=== PATIENT | male | born 1955 | race African-American/Black ===

== ENCOUNTER 2020-08-19 10:29 | Outpatient (REF) | payer MEDICARE, SELFPAY ==
[2020-08-19 11:30] LABS: MANUAL DIFF FLAG NO
[2020-08-19 11:37] LABS: Basophils Percent Auto 0.9 % (0-2); Eosinophils Absolute Auto 0.1 X10*3/uL (0.0-0.4); Eosinophils Percent Auto 2.2 % (0-4); Hematocrit 41.3 % (42-52); Hemoglobin 13.7 g/dl (14.0-18.0); Imm Gran Abs Auto 0.01 X10*3/uL (0.00-0.03); Imm Gran Pct Auto 0.3 % (0.0-0.4); Lymphocytes Absolute Auto 1.7 X10*3/uL (1.2-4.9); Lymphocytes Percent Auto 52.2 % (20-40); Mean Corpuscular HGB Conc 33.2 g/dl (31.0-36.0); Mean Corpuscular Hemoglobin 31.2 pg (27.0-33.0); Mean Corpuscular Volume 94.1 fL (80-98); Mean Platelet Volume 11.6 fL (9.4-12.4); Monocytes Absolute Auto 0.3 X10*3/uL (0.1-1.2); Monocytes Percent Auto 9.2 % (2-11); Neutrophils Absolute Auto 1.1 X10*3/uL (2.0-8.3); Neutrophils Percent Auto 35.2 % (45-73); Platelet Count 206 X10*3/uL (160-400); Red Blood Count 4.39 X10*6/uL (4.60-5.80); Red Cell Distribution Width 14.4 % (11.0-16.0); White Blood Count 3.2 X10*3/uL (4.8-10.8)
[2020-08-19 12:15] LABS: Alanine Aminotransferase 25 U/L (0-40); Albumin Level 4.4 g/dL (3.5-5.0); Alkaline Phosphatase 47 U/L (39-117); Anion Gap 13 (12-20); Aspartate Amino Transferase 26 U/L (5-37); Bilirubin Total 0.5 mg/dL (0.0-1.0); Blood Urea Nitrogen 19 mg/dL (9-16); Calcium 9.4 mg/dL (8.4-10.2); Carbon Dioxide 29 mmol/L (22-29); Chloride 102 mmol/L (96-108); Cholesterol 179 mg/dL; Estimated Glomerular Filt Rate 58; Glucose Random 100 mg/dL (60-115); HDL Cholesterol 72 mg/dL; LDL Cholesterol Calculated 99 mg/dl; Potassium 4.8 mmol/L (3.3-5.1); Sodium 139 mmol/L (135-145); Total Protein 8.1 g/dL (6.5-8.0); Triglycerides 40 mg/dL
[2020-08-19 12:36] LABS: Free T4 (Free Thyroxine) 0.92 ng/dL (0.71-1.85); Prostate Specific Antigen Scr 0.61 ng/mL (<0.05-4.0); Thyroid Stimulating Hormone 0.64 uIU/mL (0.32-4.0)
[2020-08-21 04:52] LABS: Folate 6.7 ng/mL (> or = 4.0); Vitamin B12 729 pg/mL (200-900)
== END 2020-08-19 10:30 | disposition home or self-care (01) ==
LOC: HO.LAB 10:29
PROVIDERS: PCP Internal Medicine; Visit Provider Internal Medicine
DX: E78.00 Pure hypercholesterolemia, unspecified (principal); I10 Essential (primary) hypertension; Z12.5 Encounter for screening for malignant neoplasm of prostate
CPT/HCPCS: 36415; 80053; 80061; 82607; 82746; 84153; 84439; 84443; 85025

== ENCOUNTER 2021-02-12 10:03 | Outpatient (REF) | payer MEDICARE, SELFPAY ==
[2021-02-12 11:10] LABS: Basophils Percent Auto 0.7 % (0-2); Eosinophils Absolute Auto 0.1 X10*3/uL (0.0-0.4); Eosinophils Percent Auto 1.7 % (0-4); Hematocrit 38.9 % (42-52); Hemoglobin 13.4 g/dl (14.0-18.0); Immature Retic Fraction 8.6 % (2.3-13.4); Lymphocytes Absolute Auto 1.7 X10*3/uL (1.2-4.9); Lymphocytes Percent Auto 56.8 % (20-40); MANUAL DIFF FLAG SCAN; Mean Corpuscular HGB Conc 34.4 g/dl (31.0-36.0); Mean Corpuscular Hemoglobin 31.9 pg (27.0-33.0); Mean Corpuscular Volume 92.6 fL (80-98); Monocytes Absolute Auto 0.3 X10*3/uL (0.1-1.2); Neutrophils Absolute Auto 0.9 X10*3/uL (2.0-8.3); Neutrophils Percent Auto 30.8 % (45-73); Platelet Count 185 X10*3/uL (160-400); Red Cell Distribution Width 14.3 % (11.0-16.0); Retic HGB Equivalent 35.1 pg (30.0-35.0); Reticulocyte Percent 1.2 % (0.5-1.8); Reticulocytes Absolute 0.049 X10*6/uL (0.026-0.095); SCAN SMEAR FLAG 1
[2021-02-12 11:34] LABS: Estimated Average Glucose 123 mg/dL; Hemoglobin A1c % 5.9 %
[2021-02-12 11:36] LABS: Alanine Aminotransferase 19 U/L (0-40); Albumin Level 4.3 g/dL (3.5-5.0); Alkaline Phosphatase 43 U/L (39-117); Anion Gap 12 (12-20); Aspartate Amino Transferase 23 U/L (5-37); Bilirubin Total 0.7 mg/dL (0.0-1.0); Blood Urea Nitrogen 15 mg/dL (9-16); Calcium 9.5 mg/dL (8.4-10.2); Carbon Dioxide 27 mmol/L (22-29); Chloride 102 mmol/L (96-108); Estimated Glomerular Filt Rate 59; Glucose Random 86 mg/dL (60-115); Iron 104 mcg/dL (45-160); Percent Iron Saturation 32 % (15-50); Potassium 3.9 mmol/L (3.3-5.1); Sodium 137 mmol/L (135-145); Total Iron Binding Capacity 323 mcg/dL (228-428); Total Protein 7.6 g/dL (6.5-8.0); Unsaturated Iron Binding 219 ug/dL
[2021-02-12 11:56] LABS: Ferritin 274 ng/mL (20-250)
[2021-02-12 12:16] LABS: SLIDE REVIEW VERIFIED
== END 2021-02-12 10:04 | disposition home or self-care (01) ==
LOC: HO.LAB 10:03
PROVIDERS: Visit Provider Internal Medicine
DX: D64.9 Anemia, unspecified (principal); N28.9 Disorder of kidney and ureter, unspecified; R73.02 Impaired glucose tolerance (oral)
CPT/HCPCS: 36415; 80053; 82728; 83036; 83540; 85025; 85045

== ENCOUNTER 2021-07-16 11:38 | Outpatient (REF) | payer MEDICARE, SELFPAY ==
[2021-07-16 12:58] LABS: Anion Gap 12 (12-20); Blood Urea Nitrogen 15 mg/dL (9-16); Calcium 9.6 mg/dL (8.4-10.2); Carbon Dioxide 28 mmol/L (22-29); Chloride 103 mmol/L (96-108); Estimated Glomerular Filt Rate 56; Glucose Random 93 mg/dL (60-115); Potassium 4.4 mmol/L (3.3-5.1); Sodium 139 mmol/L (135-145)
== END 2021-07-16 11:39 | disposition home or self-care (01) ==
LOC: HO.LAB 11:38
PROVIDERS: PCP Internal Medicine; Visit Provider Internal Medicine
DX: N28.9 Disorder of kidney and ureter, unspecified (principal)
CPT/HCPCS: 36415; 80048

== ENCOUNTER 2022-10-10 07:06 | Outpatient (REF) | payer MEDICARE, SELFPAY ==
[2022-10-10 07:20] LABS: MANUAL DIFF FLAG NO
[2022-10-10 07:55] LABS: Basophils Percent Auto 0.5 % (0-2); Eosinophils Absolute Auto 0.1 X10*3/uL (0.0-0.4); Hematocrit 38.8 % (42.0-52.0); Hemoglobin 13.2 g/dl (14.0-18.0); Imm Gran Abs Auto 0.01 X10*3/uL (0.00-0.03); Imm Gran Pct Auto 0.2 % (0.0-0.4); Lymphocytes Absolute Auto 1.9 X10*3/uL (1.2-4.9); Lymphocytes Percent Auto 47.9 % (20-40); Mean Corpuscular Volume 93.9 fL (80.0-98.0); Mean Platelet Volume 11.8 fL (9.4-12.4); Monocytes Absolute Auto 0.4 X10*3/uL (0.1-1.2); Monocytes Percent Auto 9.7 % (2-11); Neutrophils Absolute Auto 1.6 x10*3/uL (2.0-8.3); Neutrophils Percent Auto 39.7 % (45-73); Platelet Count 164 X10*3/uL (160-400); Red Blood Count 4.13 X10*6/uL (4.60-5.80); Red Cell Distribution Width 13.5 % (11.0-16.0)
[2022-10-10 08:11] LABS: Estimated Average Glucose 123 mg/dL; Hemoglobin A1c % 5.9 %
[2022-10-10 08:34] LABS: Alanine Aminotransferase 16 U/L (0-40); Alkaline Phosphatase 47 U/L (39-117); Anion Gap 12 (12-20); Aspartate Amino Transferase 22 U/L (5-37); Bilirubin Total 0.4 mg/dL (0.0-1.0); Blood Urea Nitrogen 16 mg/dL (9-16); Calcium 9.1 mg/dL (8.4-10.2); Carbon Dioxide 28 mmol/L (22-29); Chloride 103 mmol/L (96-108); Cholesterol 154 mg/dL; Estimated Glomerular Filt Rate > 60; Glucose Random 113 mg/dL (60-115); HDL Cholesterol 74 mg/dL; LDL Cholesterol Calculated 74 mg/dl; Potassium 4.3 mmol/L (3.3-5.1); Sodium 139 mmol/L (135-145); Total Protein 7.5 g/dL (6.5-8.0); Triglycerides 30 mg/dL
[2022-10-10 09:02] LABS: Folate 8.3 ng/mL (> or = 4.0); Free T4 (Free Thyroxine) 0.84 ng/dL (0.71-1.85); Prostate Specific Antigen Scr 0.82 ng/mL (<0.05-4.0); Thyroid Stimulating Hormone 1.23 uIU/mL (0.32-4.0); Vitamin B12 581 pg/mL (200-900)
== END 2022-10-10 07:07 | disposition home or self-care (01) ==
LOC: HO.LAB 07:06
PROVIDERS: PCP Internal Medicine; Visit Provider Internal Medicine
DX: Z12.5 Encounter for screening for malignant neoplasm of prostate (principal); I10 Essential (primary) hypertension; E78.00 Pure hypercholesterolemia, unspecified; R73.02 Impaired glucose tolerance (oral)
CPT/HCPCS: 36415; 80053; 80061; 82607; 82746; 83036; 84153; 84439; 84443; 85025

== ENCOUNTER 2022-12-10 15:01 | Outpatient (AMB) | payer MEDICARE, SELFPAY ==
--- NOTE | 2022-12-10 15:03 | A.OFFPC_ITS ---
Vital Signs 12/10/22 15:04 12/10/22 15:28 Height 5 ft 11 in Weight 191 lb BMI 26.6 BP 144/98 H 132/70 Blood Pressure Location Lt brachial Lt brachial Position Sitting Sitting Pulse 83 Pulse Source Pulse Oximeter Pulse Oximetry (%) 98 Oxygen Delivery Method Room Air Intake Visit Reasons: Annual Exam Allergies amlodipine Allergy (Unknown, Verified 12/10/22 15:04) Unknown lisinopril Allergy (Unknown, Verified 12/10/22 15:04) Unknown Medication List - Last Reconciled 12/10/22 by Joel Dale MD hydrochlorothiazide 12.5 mg PO Q OTHER DAY 90 days metoprolol succinate ER 25 mg PO DAILY 30 days Tobacco use date assessed: 10/09/22 Fall risk assessment: No Falls in past year Last assessed Fall Risk: 12/10/22 Dental Screening Dental Screen Date: 12/10/22 Did you have a dental visit in the last 12 months?: Yes Did you have a dental problem in the last 6 months where you did not have access to dental care?: No Was dental information given to patient?: Patient has dentist HPI Annual Exam HPI Details 67-year-old overweight male with obstructive sleep apnea hypertension impaired glucose tolerance renal insufficiency in [place] anemia chronic disease last seen in September 2022 patient comes in for physical exam. BP at home is good [facility], [facility] Medical History (Updated 12/10/22 @ 15:26 by Joel Dale MD) Erectile dysfunction Hypertension Normochromic normocytic anemia Obstructive sleep apnea Vitamin D deficiency Surgical History History of surgery Family History Father No problems noted. Mother No problems noted. Social History (Updated 12/10/22 @ 15:30 by Joel Dale MD) Household Members: None Housing: House Are you a primary group care worker to a significant other at home: No Do you presently have visiting nurse or other home services: No Alcohol intake: current Alcohol intake frequency: 0-2 drinks per day Patient Tobacco Use Status: Former Tobacco user Tobacco use type: Cigarette Years Smoked: 1998 e-Cigarette/Vaping Use: Never Used Second Hand Smoke Exposure: No service: No Current occupational status: retired Cognitive needs: No Hearing needs: No Vision needs: No Questionnaire PHQ-9 Over the last 2 weeks, how often have you been bothered by any of the following problems? 1. Little interest or pleasure in doing things: not at all 2. Feeling down, depressed, or hopeless: not at all 3. Trouble falling or staying asleep, or sleeping too much: not at all 4. Feeling tired or having little energy: not at all 5. Poor appetite or overeating: not at all 6. Feeling bad about yourself - or that you are a failure or have let yourself or your family down: not at all 7. Trouble concentrating on things, such as reading the newspaper or watching television: not at all 8. Moving or speaking so slowly that other people could have noticed. Or the opposite - being so fidgety or restless that you have been moving around a lot more than usual: not at all 9. Thoughts that you would be better off or of hurting yourself in some way: not at all Total score: 0 Depression Screening Interpretation: Negative Source: Developed by Drs. Arcadio Rice, Sherie Viera, Jonas Hardwick and colleagues, with an educational nisa from [employer]. Thrive Questionnaire Date Thrive assessed: 10/09/22 AUDIT C Alcohol Use Questionnaire (AUDIT-C) 1. How often do you have a drink containing alcohol?: 4 or more times a week 2. How many drinks containing alcohol do you have on a typical day when you are drinking?: 1 or 2 3. How often do you have six or more drinks on one occasion?: Never Total Score: 4 JESSY-7 AMB Questionnaire JESSY-7 Date JESSY - 7 assessed: 10/09/22 Source: Developed by Drs. Arcadio Rice, Jonas Pa and colleagues, with an educational nisa from [employer]. Review of Systems Const Reports as per HPI ENT Reports Normal hearing present Neuro Reports Normal hearing present and Denies confusion Psych Denies confusion Physical exam (Primary Care) Vital Signs: Last Vital Signs Pulse 83 12/10/22 15:04 BP 144/98 H 12/10/22 15:04 Pulse Ox 98 12/10/22 15:04 Oxygen Delivery Method Room Air 12/10/22 15:04 Care Plan Goal for BP management: impacted cerumen R , guaiac negative, prostate N BMI result Body Mass Index 26.6 Tobacco/Smoking Status: Tobacco use Status Tobacco use date assessed 10/09/22 12/10/22 15:08 Patient Tobacco Use Status Former Tobacco user 12/10/22 15:08 Tobacco use type Cigarette 12/10/22 15:08 e-Cigarette/Vaping Use Never Used 12/10/22 15:08 PHQ-9: PHQ-9 Score PHQ-9: Total score 0 12/10/22 15:08 Depression Screening Interpretation: Negative Thrive Assessment: Date of Thrive Assessment Date Thrive assessed 10/09/22 12/10/22 15:08 Const General: alert and awake; No confusion Orientation/consciousness: No confusion HENMT Head: Yes normocephalic Ears: external ears normal Face and sinus: Yes normal facial exam Mouth: moist mucous membranes Throat: Yes tonsils normal Eyes Conjunctivae: conjunctivae normal Pupils: Equal, round and reactive pupils present and Pupil accommodation reflex normal Direct Ophthalmoscopy: normal light reflex Neck Neck: No lymphadenopathy Thyroid: Thyroid normal Chest Chest palpation & inspection: normal inspection of the chest Resp Effort & Inspection: normal respiratory effort and no audible wheezes Auscultation: clear to auscultation bilaterally, no crackles, no wheezes and lung sounds not diminished Cardio Rate: regular rate Rhythm: regular rhythm Peripheral pulses: radial pulses present and dorsalis pedis present GI Palpation (GI): no masses Auscultation: normal bowel sounds and normoactive bowel sounds Male General Exam: Yes normal external exam Skin General skin exam: no rashes or lesions noted Rashes: no rashes Neuro General: deep tendon reflexes 2+ bilaterally and No confusion Cranial nerves: Yes Equal, round and reactive pupils present, Yes Midline tongue present, Yes Normal hearing present and Yes Ability to bilaterally elevate shoulders present Cognition (Neuro): normal cognition Gait exam (Neuro): Normal gait present Motor exam (neuro): 5/5 motor strength present throughout Deep tendon reflexes (DTR's): Right brachioradialis reflex intensity grade: 2+, Left brachioradialis reflex intensity grade: 2+, Right patellar reflex intensity grade: 2+ and Left patellar reflex intensity grade: 2+ Extrem General: No edema Assessment and Plan Assessment & Plan (1) Annual physical exam: Code(s): Z00.00 - Encounter for general adult medical examination without abnormal findings (2) Anemia of chronic disease: Code(s): D63.8 - Anemia in other chronic diseases classified elsewhere Plan: Stable (3) Overweight (BMI 25.0-29.9): Code(s): E66.3 - Overweight Plan: Diet and exercise (4) Renal insufficiency: Code(s): N28.9 - Disorder of kidney and ureter, unspecified Plan: Stable avoid NSAIDs keep well hydrated (5) Impaired glucose tolerance: Code(s): R73.02 - Impaired glucose tolerance (oral) Plan: Decrease the amount of carbohydrate intake, pasta, bread, rice and potatoes are all sugar and that is aside from all the sweet stuff, remember that fruits are good but they are Sweet also. (6) Obstructive sleep apnea: Comment: On CPAP Q night > 4 hours and benefit Code(s): G47.33 - Obstructive sleep apnea (adult) (pediatric) Plan: Continue with CPAP more than 4 hours a night and benefits from this (7) Hypertension: Code(s): I10 - Essential (primary) hypertension Qualifiers: Hypertension type: essential hypertension Qualified Code(s): I10 - Essential (primary) hypertension Plan: Continue with blood pressure medication. Decrease salt intake and exercise continue with hydrochlorothiazide 12.5 mg and metoprolol 25 mg once a day Coding Level of Care Code Est Pt Prev Care >65y(11711) Diagnoses Annual physical exam Z00.00 Anemia of chronic disease D63.8 Overweight (BMI 25.0-29.9) E66.3 Renal insufficiency N28.9 Impaired glucose tolerance R73.02 Obstructive sleep apnea G47.33 Hypertension I10 Hypertension type: essential hypertension
[2022-12-10 15:04] VITALS: BP 144/98; PULSE 83; O2SAT 98; BMI 26.6
[2022-12-10 15:28] VITALS: BP 132/70
== END 2022-12-10 15:49 | disposition home or self-care (01) ==
PROVIDERS: Visit Provider Internal Medicine
DX: I10 Essential (primary) hypertension (principal); D63.8 Anemia in other chronic diseases classified elsewhere; E66.3 Overweight; N28.9 Disorder of kidney and ureter, unspecified; R73.02 Impaired glucose tolerance (oral); G47.33 Obstructive sleep apnea (adult) (pediatric); Z68.26 Body mass index [BMI] 26.0-26.9, adult
CPT/HCPCS: 99214

== ENCOUNTER 2023-11-19 10:01 | Outpatient (AMB) | payer MEDICARE, SELFPAY ==
--- NOTE | 2023-11-19 10:41 | MHC.PC.OV ---
Vital Signs 11/19/23 10:46 Height 5 ft 11 in Weight 183 lb BMI 25.5 BP 138/80 Blood Pressure Location Lt brachial Position Sitting Pulse 70 Pulse Source Pulse Oximeter Pulse Oximetry (%) 98 Oxygen Delivery Method Room Air Intake Visit Reasons: Follow up Allergies amlodipine Allergy (Unknown, Verified 11/19/23 10:46) Unknown lisinopril Allergy (Unknown, Verified 11/19/23 10:46) Unknown Tobacco use date assessed: 11/19/23 Fall risk assessment: No Falls in past year Last assessed Fall Risk: 11/19/23 Dental Screening Dental Screen Date: 11/19/23 Did you have a dental visit in the last 12 months?: Yes Did you have a dental problem in the last 6 months where you did not have access to dental care?: No Was dental information given to patient?: Patient has dentist HPI Follow up HPI Details 68-year-old male with impaired glucose tolerance hypertension obstructive sleep apnea renal insufficiency and anemia of chronic disease coming in for follow-up. Last seen in 12/05/2022. [facility] Medical History (Updated 11/19/23 @ 11:18 by Joel Dale MD) Normochromic normocytic anemia Obstructive sleep apnea Hypertension Vitamin D deficiency Erectile dysfunction Surgical History History of surgery Family History Father No problems noted. Mother No problems noted. Social History (Updated 12/10/22 @ 15:30 by Joel Dale MD) Household Members: None Housing: House Are you a primary respiratory care faculty to a significant other at home: No Do you presently have visiting nurse or other home services: No Alcohol intake: current Alcohol intake frequency: 0-2 drinks per day Patient Tobacco Use Status: Former Tobacco user Tobacco use type: Cigarette Years Smoked: 1998 e-Cigarette/Vaping Use: Never Used Second Hand Smoke Exposure: No service: No Current occupational status: retired Cognitive needs: No Hearing needs: No Vision needs: Yes Questionnaire PHQ-9 Over the last 2 weeks, how often have you been bothered by any of the following problems? 1. Little interest or pleasure in doing things: not at all 2. Feeling down, depressed, or hopeless: not at all 3. Trouble falling or staying asleep, or sleeping too much: not at all 4. Feeling tired or having little energy: not at all 5. Poor appetite or overeating: not at all 6. Feeling bad about yourself - or that you are a failure or have let yourself or your family down: not at all 7. Trouble concentrating on things, such as reading the newspaper or watching television: not at all 8. Moving or speaking so slowly that other people could have noticed. Or the opposite - being so fidgety or restless that you have been moving around a lot more than usual: not at all 9. Thoughts that you would be better off or of hurting yourself in some way: not at all Total score: 0 Depression Screening Interpretation: Negative Depression Screening Done: Yes Source: Developed by Drs. Arcadio Rice, Sherie Viera, Jonas Hardwick and colleagues, with an educational nisa from [employer]. Thrive Questionnaire Date Thrive assessed: 11/19/23 I am a: Patient What is your living situation today?: I have a steady place to live Within the past 12 months, did the food you bought not last and you didn't have the money to get more?: Never true Within the past 12 months, did you worry whether your food would run out before you got money to buy more?: Never true Do you have trouble paying for medicines?: No Do you have trouble getting transportation to medical appointments?: No Do you have trouble paying your heating and electricity bill?: No Do you have trouble taking care of your child, family member or friend?: No Do you have trouble with day-to-day activities such as bathing, preparing meals, shopping, managing finances, etc.?: No Are you currently unemployed and looking for a job?: No Are you interested in more education?: No Currently or been in a relationship where the following occur: No concerns reported THRIVE Score: 0 AUDIT C Alcohol Use Questionnaire (AUDIT-C) 1. How often do you have a drink containing alcohol?: 4 or more times a week 2. How many drinks containing alcohol do you have on a typical day when you are drinking?: 1 or 2 3. How often do you have six or more drinks on one occasion?: Never Total Score: 4 JESSY-7 AMB Questionnaire JESSY-7 Date JESSY - 7 assessed: 11/19/23 Feeling nervous, anxious, or on edge: 0 = Not at all Not being able to stop or control worryin = Not at all Worrying too much about different things: 0 = Not at all Trouble relaxin = Not at all Being so restless that it is hard to sit still: 0 = Not at all Becoming easily annoyed or irritable: 0 = Not at all Feeling afraid as if something awful might happen: 0 = Not at all Total JESSY-7 score (0-4 normal; 5-9 mild; 10-14 moderate; 15-21 severe): 0 Source: Developed by Drs. Arcadio Rice, Sherie Viera, Jonas Hardwick and colleagues, with an educational nisa from [employer]. Physical exam (Primary Care) Vital Signs: Last Vital Signs Pulse 70 11/19/23 10:46 BP 138/80 11/19/23 10:46 Pulse Ox 98 11/19/23 10:46 Oxygen Delivery Method Room Air 11/19/23 10:46 BMI result Body Mass Index 25.5 Tobacco/Smoking Status: Tobacco use Status Tobacco use date assessed 11/19/23 11/19/23 10:50 Patient Tobacco Use Status Former Tobacco user 11/19/23 10:41 Tobacco use type Cigarette 11/19/23 10:41 e-Cigarette/Vaping Use Never Used 11/19/23 10:41 PHQ-9: PHQ-9 Score PHQ-9: Total score 0 11/19/23 10:51 Depression Screening Interpretation: Negative Thrive Assessment: Date of Thrive Assessment Date Thrive assessed 11/19/23 11/19/23 10:50 Currently or been in a relationship where the following occur: No concerns reported Const General: alert; No acute distress Eyes Conjunctivae: conjunctivae normal Resp Auscultation: clear to auscultation bilaterally Cardio Rate: regular rate Rhythm: regular rhythm GI Inspection: Yes normal to inspection Extrem General: Yes normal to inspection and No edema Assessment and Plan Assessment & Plan (1) Impaired glucose tolerance: Code(s): R73.02 - Impaired glucose tolerance (oral) Plan: Decrease the amount of carbohydrate intake, pasta, bread, rice and potatoes are all sugar and that is aside from all the sweet stuff, remember that fruits are good but they are Sweet also. (2) Obstructive sleep apnea: Comment: On CPAP Q night > 4 hours and benefit Code(s): G47.33 - Obstructive sleep apnea (adult) (pediatric) Plan: Continue to use the CPAP more than 4 hours a night and benefits from this. (3) Hypertension: Code(s): I10 - Essential (primary) hypertension Qualifiers: Hypertension type: essential hypertension Qualified Code(s): I10 - Essential (primary) hypertension Plan: Continue with blood pressure medication. Decrease salt intake and exercise on metoprolol and hydrochlorothiazide advised to get blood work (4) Renal insufficiency: Code(s): N28.9 - Disorder of kidney and ureter, unspecified Plan: Keep well hydrated and avoid NSAIDs (5) Colon cancer screening: Code(s): Z12.11 - Encounter for screening for malignant neoplasm of colon Orders: Orders Thyroid Stimulating Hormone Today I10 - Essential (primary) hypertension Reticulocyte Count Today I10 - Essential (primary) hypertension IRON PROFILE Today I10 - Essential (primary) hypertension Complete Blood Count Auto Diff Today I10 - Essential (primary) hypertension Comprehensive Met. Panel Today I10 - Essential (primary) hypertension Prostate Specific Antigen Scr Today I10 - Essential (primary) hypertension Free T4 (Free Thyroxine) Today I10 - Essential (primary) hypertension Vitamin B12 and Folate Today I10 - Essential (primary) hypertension Lipid Panel Today E78.00 - Pure hypercholesterolemia, unspecified, I10 - Essential (primary) hypertension Ferritin Today I10 - Essential (primary) hypertension Referrals Gastroenterology Referral Z12.11 - Encounter for screening for malignant neoplasm of colon Coding Level of Care Code Est Pt Level 4 (12406) Diagnoses Impaired glucose tolerance R73.02 Obstructive sleep apnea G47.33 Essential hypertension I10 Hypertension type: essential hypertension Renal insufficiency N28.9 Colon cancer screening Z12.11
[2023-11-19 10:46] VITALS: BP 138/80; PULSE 70; O2SAT 98; BMI 25.5
== END 2023-11-19 11:37 | disposition home or self-care (01) ==
PROVIDERS: PCP Internal Medicine; Visit Provider Internal Medicine
DX: R73.02 Impaired glucose tolerance (oral) (principal); G47.33 Obstructive sleep apnea (adult) (pediatric); I10 Essential (primary) hypertension; N28.9 Disorder of kidney and ureter, unspecified; Z12.11 Encounter for screening for malignant neoplasm of colon
CPT/HCPCS: 99214

== ENCOUNTER 2023-11-21 11:04 | Outpatient (REF) | payer MEDICARE, SELFPAY ==
[2023-11-21 11:53] LABS: Basophils Percent Auto 0.7 % (0-2); Eosinophils Percent Auto 1.4 % (0-4); Hematocrit 38.8 % (42.0-52.0); Hemoglobin 13.1 g/dl (14.0-18.0); Immature Retic Fraction 7.3 % (2.3-13.4); Lymphocytes Absolute Auto 1.6 X10*3/uL (1.2-4.9); Lymphocytes Percent Auto 56.3 % (20-40); MANUAL DIFF FLAG SCAN; Mean Corpuscular HGB Conc 33.8 g/dl (31.0-36.0); Mean Corpuscular Hemoglobin 31.9 pg (27.0-33.0); Mean Corpuscular Volume 94.4 fL (80.0-98.0); Mean Platelet Volume 11.6 fL (9.4-12.4); Monocytes Absolute Auto 0.3 X10*3/uL (0.1-1.2); Monocytes Percent Auto 10.8 % (2-11); Neutrophils Absolute Auto 0.9 x10*3/uL (2.0-8.3); Neutrophils Percent Auto 30.8 % (45-73); Platelet Count 174 X10*3/uL (160-400); Red Blood Count 4.11 X10*6/uL (4.60-5.80); Red Cell Distribution Width 15.1 % (11.0-16.0); Retic HGB Equivalent 35.7 pg (30.0-35.0); Reticulocyte Percent 1.1 % (0.5-1.8); Reticulocytes Absolute 0.046 X10*6/uL (0.026-0.095); SCAN SMEAR FLAG 1; White Blood Count 2.8 X10*3/uL (4.8-10.8)
[2023-11-21 12:18] LABS: SLIDE REVIEW VERIFIED
[2023-11-21 12:22] LABS: Alanine Aminotransferase 13 U/L (0-40); Albumin Level 4.4 g/dL (3.5-5.0); Alkaline Phosphatase 50 U/L (39-117); Anion Gap 12 (12-20); Aspartate Amino Transferase 22 U/L (5-37); Bilirubin Total 0.5 mg/dL (0.0-1.0); Blood Urea Nitrogen 14 mg/dL (9-16); Calcium 9.7 mg/dL (8.4-10.2); Carbon Dioxide 28 mmol/L (22-29); Chloride 104 mmol/L (96-108); Cholesterol 172 mg/dL (<200); Estimated Glomerular Filt Rate > 60; Glucose Random 85 mg/dL (60-115); HDL Cholesterol 87 mg/dL (>40); Iron 92 mcg/dL (45-160); LDL Cholesterol Calculated 79 mg/dL (<100); Percent Iron Saturation 32 % (15-50); Potassium 4.1 mmol/L (3.3-5.1); Sodium 140 mmol/L (135-145); Total Iron Binding Capacity 291 mcg/dL (228-428); Triglycerides 31 mg/dL (<150); Unsaturated Iron Binding 199 ug/dL
[2023-11-21 12:41] LABS: Ferritin 170 ng/mL (20-250); Free T4 (Free Thyroxine) 0.86 ng/dL (0.71-1.85)
[2023-11-21 12:42] LABS: Prostate Specific Antigen Scr 0.91 ng/mL (<0.05-4.0); Vitamin B12 634 pg/mL (200-900)
== END 2023-11-21 11:05 | disposition home or self-care (01) ==
LOC: HO.LAB 11:04
PROVIDERS: PCP Internal Medicine; Visit Provider Internal Medicine
DX: I10 Essential (primary) hypertension (principal); E78.00 Pure hypercholesterolemia, unspecified; Z12.5 Encounter for screening for malignant neoplasm of prostate
CPT/HCPCS: 36415; 80053; 80061; 82607; 82728; 82746; 83540; 84153; 84439; 84443; 85025; 85045

== ENCOUNTER 2024-09-30 13:31 | Outpatient (REF) | payer MEDICARE, SELFPAY ==
--- NOTE | ~2024-09-30 | XR_ITS ---
EXAMINATION: XR KNEE 1-2 VIEWS RIGHT HISTORY: M25.561 - Pain in right knee COMPARISON: There are no prior studies available for comparison. FINDINGS: AP and lateral views of the right knee are submitted. Osseous mineralization is normal. There is no fracture or dislocation. The joint spaces are preserved. The soft tissues are unremarkable. There is no significant joint effusion. XR/XR knee RT 2V IMPRESSION: Unremarkable examination of the right kidney. Electronically signed by: Arcadio Hair MD 09/30/2024 02:31 PM EDT
== END 2024-09-30 13:32 | disposition home or self-care (01) ==
LOC: HO.XRAY 13:31
PROVIDERS: PCP Internal Medicine
DX: M25.561 Pain in right knee (principal); I10 Essential (primary) hypertension; G47.33 Obstructive sleep apnea (adult) (pediatric); N28.9 Disorder of kidney and ureter, unspecified
CPT/HCPCS: 73560; 96127; 99212

== ENCOUNTER 2024-09-30 13:31 | Outpatient (AMB) | payer MEDICARE, SELFPAY ==
--- NOTE | 2024-09-30 13:37 | MHC.PC.OV ---
Vital Signs 09/30/24 13:39 Height 5 ft 11 in Weight 184 lb 2 oz BMI 25.7 BP 140/80 H Blood Pressure Location Lt brachial Position Sitting Pulse 81 Pulse Source Pulse Oximeter Temp 97.3 F Temp Source Temporal Artery Scan Pulse Oximetry (%) 97 Oxygen Delivery Method Room Air Intake Visit Reasons: rt knee pain Intake Note: Patient is here to follow up on Right knee pain. Corporate Security Officer Required: No Bung Driver: Not Required per policy Accompanied by: Self / Same As Patient Allergies amlodipine Allergy (Unknown, Verified 09/30/24 13:43) Unknown lisinopril Allergy (Unknown, Verified 09/30/24 13:43) Unknown Medication List - Last Reconciled 09/30/24 by Earline Watt PA-C hydrochlorothiazide 12.5 mg PO Q OTHER DAY 90 days metoprolol succinate ER 25 mg PO DAILY 30 days Tobacco use date assessed: 09/30/24 Fall risk assessment: No Falls in past year Last assessed Fall Risk: 09/30/24 Dental Screening Dental Screen Date: 09/30/24 Did you have a dental visit in the last 12 months?: Yes Did you have a dental problem in the last 6 months where you did not have access to dental care?: No Was dental information given to patient?: Patient has dentist HPI rt knee pain HPI Details 68-year-old male with past medical history of impaired glucose tolerance, hypertension, obstructive sleep apnea, renal insufficiency and anemia of chronic disease last seen 11/2023 coming in for acute problem. Presenting with knee pain, aching sensation that manifests primarily during movement. He reports no history of trauma, falls, or lifting that might have initiated or exacerbated the knee pain. The patient has experienced persistent aching without any sharp or shifting pain. Attempts at pain mitigation, including usage of Tylenol, have been ineffective. There are no discernible patterns in relief or exacerbation, with activities such as walking being particularly aggravating. Therapeutic options include initiating Naproxen for symptomatic relief, alongside consideration of a knee brace to enhance comfort during ambulation. Pain has been ongoing for several months without lower extremity swelling, warmth or redness. [facility] Medical History Normochromic normocytic anemia Obstructive sleep apnea Hypertension Vitamin D deficiency Erectile dysfunction Surgical History History of surgery Family History Father No problems noted. Mother No problems noted. Social History Household Members: None Housing: House Are you a primary career technology teacher to a significant other at home: No Do you presently have visiting nurse or other home services: No Alcohol intake: current Alcohol intake frequency: 0-2 drinks per day Patient Tobacco Use Status: Former Tobacco user Tobacco use type: Cigarette Years Smoked: 1998 e-Cigarette/Vaping Use: Never Used Second Hand Smoke Exposure: Yes service: No Current occupational status: retired Cognitive needs: No Hearing needs: No Vision needs: Yes Questionnaire PHQ-9 Over the last 2 weeks, how often have you been bothered by any of the following problems? 1. Little interest or pleasure in doing things: not at all 2. Feeling down, depressed, or hopeless: not at all 3. Trouble falling or staying asleep, or sleeping too much: not at all 4. Feeling tired or having little energy: not at all 5. Poor appetite or overeating: not at all 6. Feeling bad about yourself - or that you are a failure or have let yourself or your family down: not at all 7. Trouble concentrating on things, such as reading the newspaper or watching television: not at all 8. Moving or speaking so slowly that other people could have noticed. Or the opposite - being so fidgety or restless that you have been moving around a lot more than usual: not at all 9. Thoughts that you would be better off or of hurting yourself in some way: not at all Total score: 0 Depression Screening Interpretation: Negative Depression Screening Done: Yes Source: Developed by Drs. Arcadio Rice, Sherie Viera, Jonas Hardwick and colleagues, with an educational nisa from [employer]. Thrive Questionnaire Date Thrive assessed: 09/30/24 I am a: Patient What is your living situation today?: I have a steady place to live Within the past 12 months, did the food you bought not last and you didn't have the money to get more?: Never true Within the past 12 months, did you worry whether your food would run out before you got money to buy more?: Never true Do you have trouble paying for medicines?: No Do you have trouble getting transportation to medical appointments?: No Do you have trouble paying your heating and electricity bill?: No Do you have trouble taking care of your child, family member or friend?: No Do you have trouble with day-to-day activities such as bathing, preparing meals, shopping, managing finances, etc.?: No Are you currently unemployed and looking for a job?: No Are you interested in more education?: No THRIVE Score: 0 AUDIT C Alcohol Use Questionnaire (AUDIT-C) 1. How often do you have a drink containing alcohol?: 4 or more times a week 2. How many drinks containing alcohol do you have on a typical day when you are drinking?: 1 or 2 Total Score: 4 JESSY-7 AMB Questionnaire JESSY-7 Date JESSY - 7 assessed: 09/30/24 Feeling nervous, anxious, or on edge: 0 = Not at all Not being able to stop or control worryin = Not at all Worrying too much about different things: 0 = Not at all Trouble relaxin = Not at all Being so restless that it is hard to sit still: 0 = Not at all Becoming easily annoyed or irritable: 0 = Not at all Feeling afraid as if something awful might happen: 0 = Not at all Total JESSY-7 score (0-4 normal; 5-9 mild; 10-14 moderate; 15-21 severe): 0 Source: Developed by Drs. Arcadio Rice, Sherie Viera, Jonas Hardwick and colleagues, with an educational nisa from [employer]. Review of Systems Const Denies body aches and Denies chills Eyes Reports no additional complaints Card Denies chest pain and Denies dyspnea Resp Denies dyspnea Musc Reports as per HPI and Reports abnormal gait Skin/Breast Reports system reviewed and no additional complaints, except as documented Neuro Reports abnormal gait Psych Reports no additional complaints Physical exam (Primary Care) Vital Signs: Last Vital Signs Temp 97.3 F 09/30/24 13:39 Pulse 81 09/30/24 13:39 BP 140/80 H 09/30/24 13:39 Pulse Ox 97 09/30/24 13:39 Oxygen Delivery Method Room Air 09/30/24 13:39 BMI result Body Mass Index 25.7 Tobacco/Smoking Status: Tobacco use Status Tobacco use date assessed 09/30/24 09/30/24 13:42 Patient Tobacco Use Status Former Tobacco user 09/30/24 13:42 Tobacco use type Cigarette 09/30/24 13:42 e-Cigarette/Vaping Use Never Used 09/30/24 13:42 PHQ-9: PHQ-9 Score PHQ-9: Total score 0 09/30/24 13:42 Depression Screening Interpretation: Negative Thrive Assessment: Date of Thrive Assessment Date Thrive assessed 09/30/24 09/30/24 13:42 Const General: cooperative, healthy appearing, comfortable and no acute distress Orientation/consciousness: patient oriented x3 HENMT Head: Yes normocephalic Ears: hearing grossly normal bilaterally General nose exam: Normal external nose present Eyes General: appearance normal, both eyes and all related structures Conjunctivae: conjunctivae normal Neck Neck: Yes full ROM and Yes no lymphadenopathy Resp Effort & Inspection: normal respiratory effort Auscultation: clear to auscultation bilaterally, no crackles, no rales, no rhonchi and no wheezes Cardio Rate: regular rate Rhythm: regular rhythm Back/Spine/Pelvis Other: No tenderness to palpation over lumbar spine or paraspinal muscles Skin General skin exam: no rashes or lesions noted Neuro General: patient oriented x3 Gait exam (Neuro): Normal gait present Extrem Other: No edema, tenderness or warmth of bilateral calves. Intact strength, sensation, pulses in bilateral lower extremities. No tenderness to palpation over entirety of right knee or hip. General: Yes normal to inspection, Yes full ROM and No edema Psych Affect: normal affect Attitude: cooperative Insight: Good insight present (Psych) Judgement: Good judgement present (Psych) Coding Level of Care Code Est Pt Level 3 (74877) Diagnoses Right knee pain M25.561 Assessment & Plan Assessment & Plan (1) Right knee pain: Code(s): M25.561 - Pain in right knee Category: Medical Plan: I will start the patient on Naproxen 500 mg with instructions to take it alongside food and water to mitigate any gastrointestinal side effects. An x-ray of the knee will be ordered to further assess any structural issues contributing to his pain. Wearing a knee brace is recommended for additional comfort and stability during activities. These steps are undertaken to address his persistent pain while considering evaluations for any underlying pathologies. Low suspicion for DVT at this time as patient is not having any tenderness to the calf, swelling, redness or warmth. Plan This note was constructed using voice recognition software. While every effort has been made to ensure accuracy and assistant store manager operations, still areas may have been included sometimes these areas may affect the content or meeting of the given symptoms. Total time spent caring for the patient today was 20 minutes. This includes time spent before the visit reviewing the chart, time spent during the visit, and time spent after the visit and documentation. Patient was informed and verbally consented to the use of an ambient scribe for clinic note documentation during this visit. Orders: Orders XR knee RT 2V Today M25.561 - Pain in right knee Medications: New naproxen 500 mg PO BID PRN 30 tabs 0RF pain Refilled hydrochlorothiazide 12.5 mg PO Q OTHER DAY 45 tabs 1RF 90 days metoprolol succinate ER 25 mg PO DAILY 90 tabs 2RF 30 days I10 - Essential (primary) hypertension
[2024-09-30 13:39] VITALS: BP 140/80; PULSE 81; TEMP 36.3; O2SAT 97; BMI 25.7
--- OUTSIDE RECORDS SUMMARY | 2024-09-30 14:07 | XMS_ITS ---
Author Organization [facility] Address [address] [place] [phone] Care Team Providers Care Lining Strap Closer Name Role Phone Joel Dale MD Primary Care Provider Dejuan Mckeon Jr REASON FOR VISIT Pt no show Encounters Encounter Location Date Provider Diagnosis [facility] [address] [facility] [address] [place] [phone] 09/27/2024 Dejuan Cameron Jr Plan Of Treatment No Information Progress Notes * ROSETTA SANTOSHDOB:1955 (68 yo M)Acc No.[id number]:09/27/2024 Patient:?PATRICIA SANTOS :1955???Age:68 Y???Sex:Male Address:[address] [place] [address], [address] * true * Date:? Generated for Printi ng/Famiguelg/eTransmitting on:?09/30/2024 02:07 PM EDT
--- OUTSIDE RECORDS SUMMARY | 2024-09-30 14:08 | XMS_ITS ---
Author Organization [facility] Address [address] [place] [phone] Care Team Providers Care Blast Setter Name Role Phone Joel Dale MD Primary Care Provider Dejuan Mckeon Jr REASON FOR VISIT colon screening Encounters Encounter Location Date Provider Diagnosis [facility] [address] [facility] [address] [place] [phone] 09/27/2024 Dejuan Cameron Jr Plan Of Treatment No Information Progress Notes * ROSETTA SANTOSHDOB:1955 (68 yo M)Acc No.[id number]:09/27/2024 Progress Notes Patient:?PATRICIA SANTOS Provider:?Dejuan Cameron MD :1955???Age:68 Y???Sex:Male Rosales e:09/27/2024 Address:[address] [place], [place] [id number] Pcp:Joel Dale MD Subjective: * Chief Complaints: * ???1. Colon screening. * Medical History:? Objective: * Vitals:? Assessment: Plan: * Treatment: * * The named appointment provid er may or may not be the originator of this progress note, and it is not deemed complete until electronically signed by the appointment provider. Sign off status: Pending * Provider:?Dejuan Cameron MD Date:?0 09/27/2024 Generated for Samiai esteban/Celeste/eTransmitting on:?09/30/2024 02:07 PM EDT
--- OUTSIDE RECORDS SUMMARY | 2024-09-30 14:08 | XMS_ITS | Patient Health Record ---
Author Organization [facility] Address [address] [place] [phone] Care Team Providers Care French Edge Operator Name Role Phone Joel Dale MD Primary Care Provider Dejuan Mckeon Jr [phone] Reason For Referral No Information Medications Medication SIG (Take, Route, Fr equency, Duration) Notes Start Date End Date Status MoviPrep 100 GM as directed before c olonoscopy Orally 10/06/2013 Active Problems Problem Type SNOMED Code ICD Code Onset Dates Problem Status W/U Status Risk Notes Problem [id number] Colon cancer screening (V76.51) Active confirmed Encounters Encounter Location Date Provider Diagnosis [facility] [address] [phone] 09/27/2024 Dejuan Cameron Jr Plan Of Treatment Future Test Test Name Order Date COLONOSCOPY 10/06/2013 Insurance Providers Payer Name Payer Address Payer Phone Subscriber Number Group Number Insured Name Patient Relationship to Insured Coverage Start Date Coverage End Date MEDICARE OF VLADIMIR ALLEN ANDERSON [address] [id number] [phone] [id number] PATRICIA SANTOS Self - patient is the insured Medical (General) History Medical History History ICD Code sleep apnea Surgical History Surgery Date(Month/Year) wisdom teeth
== END 2024-09-30 14:08 | disposition home or self-care (01) ==
LOC: HO.HMCH 13:32
PROVIDERS: PCP Internal Medicine
DX: M25.561 Pain in right knee (principal)

== ENCOUNTER → 2024-09-30 14:20 | Outpatient (BNV) | payer MEDICARE, SELFPAY | PROVIDERS: PCP Internal Medicine; Visit Provider Radiology Diagnostic Radiology | DX: M25.561 Pain in right knee (principal) | CPT/HCPCS: 73560 ==

== ENCOUNTER 2024-11-24 11:08 | Outpatient (AMB) | payer MEDICARE, SELFPAY ==
--- NOTE | 2024-11-24 11:11 | MHC.OFFVIS ---
Vital Signs 11/24/24 11:12 Height 5 ft 11 in Weight 184 lb BMI 25.7 Intake Visit Reasons: Right knee pain and giving way Intake Note: Jaspal is a 69 year old male who presents with complaints of progressively worsening right knee pain and giving way. The patient describes his pain as sharp in nature. Most of the pain is along the medial aspect of his knee. He states that at times his pain will radiate into his right thigh and lower leg. He denies any back pain. He states that his right knee will give out several times per day. He has failed the last 6 weeks of conservative treatment which has included physical therapy exercises, Tylenol and anti-inflammatory medicines. Allergies amlodipine Allergy (Unknown, Verified 11/24/24 11:13) Unknown lisinopril Allergy (Unknown, Verified 11/24/24 11:13) Unknown Medication List - Last Reconciled 11/24/24 by Lisandro Dhillon MD hydrochlorothiazide 12.5 mg PO Q OTHER DAY 90 days metoprolol succinate ER 25 mg PO DAILY 30 days naproxen 500 mg PO BID PRN PFSH Medical History Normochromic normocytic anemia Obstructive sleep apnea Hypertension Vitamin D deficiency Erectile dysfunction Surgical History History of surgery Family History Father No problems noted. Mother No problems noted. Social History Household Members: None Housing: House Are you a primary caregiver assisted living to a significant other at home: No Do you presently have visiting nurse or other home services: No Alcohol intake: current Alcohol intake frequency: 0-2 drinks per day Patient Tobacco Use Status: Former Tobacco user Tobacco use type: Cigarette Years Smoked: 1998 e-Cigarette/Vaping Use: Never Used Second Hand Smoke Exposure: Yes service: No Current occupational status: retired Cognitive needs: No Hearing needs: No Vision needs: Yes Physical Exam Vital Signs: BMI result Body Mass Index 25.7 Extrem Other: Right knee examination shows a minimal effusion, minimal crepitus with range of motion, tenderness along his medial joint line, positive Marlen's test, no instability Results Reviewed Results Reviewed: Standing full weight-bearing X-rays of the patient's right knee show mild diffuse joint space narrowing, no acute bony abnormalities Assessment & Plan Assessment & Plan (1) Tear of medial meniscus of right knee: Code(s): S83.241A - Other tear of medial meniscus, current injury, right knee, initial encounter Category: Medical Plan Mr. Brown presents with right knee pain and mechanical symptoms most likely due to a medial meniscus tear. Thus, I will send the patient for an MRI of his right knee for further evaluation. I will see him back once the MRI is completed to discuss the findings and treatment options. Feel free to call me at any time should questions regarding his orthopedic management arise. Thank you very much for asking me to see this very friendly gentleman. I spent 20 minutes in reviewing the patient's records and imaging studies, seeing the patient and documenting in the medical record. Orders: Orders MR knee RT wo con Today S83.241A - Other tear of medial meniscus, current injury, right knee, initial encounter Coding Level of Care Code New Pt Level 3 (33472) Complex EM visit Add On G2211 Diagnoses Tear of medial meniscus of right knee S83.241A
[2024-11-24 11:12] VITALS: BMI 25.7
--- OUTSIDE RECORDS SUMMARY | 2024-11-24 12:23 | XMS_ITS | Patient Health Record ---
Author Organization [facility] Address [address] [place] [phone] Care Team Providers Care Shaker Repairer Name Role Phone Joel Dale MD Primary Care Provider Dejuan Mckeon Jr [phone] Reason For Referral No Information Medications Medication SIG (Take, Route, Fr equency, Duration) Notes Start Date End Date Status MoviPrep 100 GM as directed before c olonoscopy Orally 10/06/2013 Active Problems Problem Type SNOMED Code ICD Code Onset Dates Problem Status W/U Status Risk Notes Problem [id number] Colon cancer screening (V76.51) Active confirmed Encounters Encounter Location Date Provider Diagnosis [facility] [address] [phone] 09/27/2024 Dejuan Cameron Jr Plan Of Treatment Future Test Test Name Order Date COLONOSCOPY 10/06/2013 Insurance Providers Payer Name Payer Address Payer Phone Subscriber Number Group Number Insured Name Patient Relationship to Insured Coverage Start Date Coverage End Date MEDICARE OF VLADIMIR ALLEN ANDERSON [address] [id number] [phone] [id number] PATRICIA SANTOS Self - patient is the insured Medical (General) History Medical History History ICD Code sleep apnea Surgical History Surgery Date(Month/Year) wisdom teeth
== END 2024-11-24 11:26 | disposition home or self-care (01) ==
LOC: HO.HOS 11:09
PROVIDERS: PCP Internal Medicine; Visit Provider Orthopaedic Surgery
DX: S83.241A Other tear of medial meniscus, current injury, right knee, initial encounter (principal)
CPT/HCPCS: 99203; G2211

== ENCOUNTER → 2024-11-24 11:08 | Outpatient (BNVA) | payer MEDICARE, SELFPAY | PROVIDERS: PCP Internal Medicine; Visit Provider Orthopaedic Surgery | DX: M25.552 Pain in left hip (principal) | CPT/HCPCS: 99202 ==

== ENCOUNTER 2024-12-19 10:03 | Outpatient (REF) | payer MEDICARE, SELFPAY ==
--- NOTE | ~2024-12-19 | MR_ITS ---
CLINICAL HISTORY: S83.241A - Other tear of medial meniscus, current injury, right knee, in... MR right knee without gadolinium Comparison: CR/SR - XR KNEE RT 2V - 09/30/24 14:30 EDT Findings: No acute fracture or pathologic bone lesion. There is moderate subchondral cyst formation with surrounding degenerative marrow edema within the weight-bearing aspects of the medial tibial plateau. Subchondral cyst formation within the central femoral trochlea. Mild tricompartmental periarticular osteophyte formation. Moderate articular cartilage loss diffusely overlies the weight-bearing aspects of the medial femoral condyle and medial tibial plateau. Mild articular cartilage loss diffusely overlies the weight-bearing aspects of the lateral femoral condyle and lateral tibial plateau. Severe articular cartilage loss overlying the central femoral trochlea inferiorly. Small knee joint effusion. Cruciate and collateral ligaments are intact. Patellar retinacula and iliotibial band are intact. Quadriceps, patellar, popliteus, and flexor tendons are intact. Mild T2 signal elevation within the quadriceps and patellar tendons at the patellar insertion sites. Medial extrusion of the medial meniscus. There is vertical and obliquely oriented linear high T2 signal intensity traverses the inner, middle, and peripheral thirds of the medial meniscal body and posterior horn, demonstrating superior and inferior articular surface extension, indicating complex tearing. Linear horizontal high T2 signal intensity traverses the inner, middle, and peripheral thirds of the medial meniscal body and posterior horn, demonstrating inferior articular surface extension, indicating horizontal tearing. IMPRESSION: 1. Medial and lateral meniscal tearing. 2. Mild quadriceps and patellar tendinopathy. 3. Tricompartmental osteoarthritis with associated articular cartilage loss. 4. Knee joint effusion. This document has been electronically signed by: Saskia Castillo MD on 12/20/2024 15:58:38
== END 2024-12-19 10:04 | disposition home or self-care (01) ==
LOC: HO.MRI 10:03
PROVIDERS: PCP Internal Medicine; Visit Provider Orthopaedic Surgery
DX: S83.241A Other tear of medial meniscus, current injury, right knee, initial encounter (principal)
CPT/HCPCS: 73721

== ENCOUNTER → 2024-12-19 10:08 | Outpatient (BNV) | payer MEDICARE, SELFPAY | PROVIDERS: PCP Internal Medicine; Visit Provider Radiology Diagnostic Radiology | DX: S83.241A Other tear of medial meniscus, current injury, right knee, initial encounter (principal) | CPT/HCPCS: 73721 ==

== ENCOUNTER 2025-01-05 10:32 | Outpatient (AMB) | payer MEDICARE, SELFPAY ==
--- NOTE | 2025-01-05 10:35 | A.OFFPC_ITS ---
Vital Signs 01/05/25 10:36 Height 5 ft 11 in Blood Pressure Location Lt brachial Position Sitting Pulse Source Pulse Oximeter Oxygen Delivery Method Room Air Intake Visit Reasons: AWV G0438 Green Energy Marketing Analyst Required: No Accompanied by: Self / Same As Patient Allergies amlodipine Allergy (Unknown, Verified 01/05/25 10:36) Unknown lisinopril Allergy (Unknown, Verified 01/05/25 10:36) Unknown Tobacco use date assessed: 01/05/25 Fall risk assessment: No Falls in past year Last assessed Fall Risk: 01/05/25 Dental Screening Dental Screen Date: 01/05/25 Did you have a dental visit in the last 12 months?: No Did you have a dental problem in the last 6 months where you did not have access to dental care?: No Was dental information given to patient?: No [facility] Medical History Normochromic normocytic anemia Obstructive sleep apnea Hypertension Vitamin D deficiency Erectile dysfunction Surgical History History of surgery Family History Father No problems noted. Mother No problems noted. Social History Household Members: None Housing: House Are you a primary long term care pharmacist to a significant other at home: No Do you presently have visiting nurse or other home services: No Alcohol intake: current Alcohol intake frequency: 0-2 drinks per day Patient Tobacco Use Status: Former Tobacco user Tobacco use type: Cigarette Years Smoked: 1998 e-Cigarette/Vaping Use: Never Used Second Hand Smoke Exposure: Yes service: No Current occupational status: retired Cognitive needs: No Hearing needs: No Vision needs: Yes Questionnaire Thrive Questionnaire Date Thrive assessed: 01/05/25 I am a: Patient What is your living situation today?: I have a steady place to live Within the past 12 months, did the food you bought not last and you didn't have the money to get more?: Never true Within the past 12 months, did you worry whether your food would run out before you got money to buy more?: Never true Do you have trouble paying for medicines?: No Do you have trouble getting transportation to medical appointments?: No Do you have trouble paying your heating and electricity bill?: No Do you have trouble taking care of your child, family member or friend?: No Do you have trouble with day-to-day activities such as bathing, preparing meals, shopping, managing finances, etc.?: No Are you currently unemployed and looking for a job?: No Are you interested in more education?: No THRIVE Score: 0 JESSY-7 AMB Questionnaire JESSY-7 Date JESSY - 7 assessed: 01/05/25 Source: Developed by Drs. Arcadio Rice, Sherie Viera, Jonas Hardwick and colleagues, with an educational nisa from [employer]. Physical exam (Primary Care) Vital Signs: Oxygen Delivery Method Room Air 01/05/25 10:36 Tobacco/Smoking Status: Tobacco use Status Tobacco use date assessed 01/05/25 01/05/25 10:37 Patient Tobacco Use Status Former Tobacco user 01/05/25 10:37 Tobacco use type Cigarette 01/05/25 10:37 e-Cigarette/Vaping Use Never Used 01/05/25 10:37 Thrive Assessment: Date of Thrive Assessment Date Thrive assessed 01/05/25 01/05/25 10:37 Coding
[2025-01-05 10:36] VITALS: BP 140/62; PULSE 76; O2SAT 98; BMI 26.3
--- NOTE | 2025-01-05 11:03 | AM.OFFVISMDC ---
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 Dhillon, Gastro, Dr. Cameron hematology Dr. Pena. BP at home is good History of Present Illness The patient is a 69-year-old male presenting with an annual wellness visit and follow-up on multiple chronic conditions. The patient has a history of hypertension, currently managed with metoprolol 25 mg once daily and hydrochlorothiazide 12.5 mg once daily. He reports a recent weight gain of 4 pounds. The patient has obstructive sleep apnea and uses a CPAP machine for more than 4 hours a night, which he finds beneficial. He has impaired glucose tolerance and requires blood work for further evaluation. The patient has a history of anemia of chronic disease. Regarding musculoskeletal issues, the patient has a medial and lateral meniscal tear in the right knee, along with tricompartmental osteoarthritis and joint effusion. He follows up with orthopedics for these conditions. The patient was reminded about the need for a colonoscopy, as his last one was in 2013. Health Maintenance - Colonoscopy reminder: Last performed in 2013, patient advised to schedule follow-up. Social History Review of Systems - Musculoskeletal: Reports knee pain and history of meniscal tear. - Neurological: Reports numbness possibly related to sciatic nerve issues. Physical Exam Results - MRI of the knee: Medial and lateral meniscal tearing, mild quadriceps and patellar tendinopathy, tricompartmental osteoarthritis, and joint effusion. Plan The patient will continue current antihypertensive medications, metoprolol and hydrochlorothiazide, to manage blood pressure. For obstructive sleep apnea, the patient is advised to continue using the CPAP machine for more than 4 hours nightly, as it provides benefits. Blood work is needed to evaluate impaired glucose tolerance further. The patient is reminded to schedule a colonoscopy, as the last one was performed in 2013. Orthopedic follow-up is necessary for the management of the meniscal tear and osteoarthritis. Patient was informed and verbally consented to the use of an ambient scribe for clinic note documentation during this visit. Discussion Notes During the visit, I discussed the importance of continuing antihypertensive medications to manage blood pressure effectively. I emphasized the benefits of using the CPAP machine for obstructive sleep apnea and encouraged the patient to maintain usage for more than 4 hours nightly. I advised the patient to undergo blood work to further assess impaired glucose tolerance. I reminded the patient to schedule a colonoscopy, given the last one was in 2013, to ensure appropriate preventative care. We discussed the need for orthopedic follow-up to address the meniscal tear and osteoarthritis. Patient Instructions - Continue taking metoprolol and hydrochlorothiazide as prescribed. - Use CPAP machine for more than 4 hours each night. - Schedule blood work for glucose tolerance evaluation. - Arrange for a colonoscopy appointment. - Follow up with orthopedics for knee management. [facility] Medical History Normochromic normocytic anemia Obstructive sleep apnea Hypertension Vitamin D deficiency Erectile dysfunction Surgical History History of surgery Family History Father No problems noted. Mother No problems noted. Social History (Updated 01/05/25 @ 11:27 by Joel Dale MD) Household Members: None Housing: House Are you a primary acute care physician to a significant other at home: No Do you presently have visiting nurse or other home services: No Alcohol intake: current Alcohol intake frequency: 0-2 drinks per day Comment: QD2 nips and little beer Patient Tobacco Use Status: Former Tobacco user Tobacco use type: Cigarette Years Smoked: 1998 e-Cigarette/Vaping Use: Never Used Second Hand Smoke Exposure: Yes service: No Current occupational status: retired Cognitive needs: No Hearing needs: No Vision needs: Yes Questionnaire Medicare Wellness Checkup [age] What gender do you identify with?: male During the past 4 weeks, how much have you been bothered by emotional problems such as feeling anxious, depressed, irritable, sad or downhearted, and blue?: not at all During the past 4 weeks, has your physical & emotional health limited your social activities with family, friends, neighbors, or groups?: not at all During the past 4 weeks, how much bodily pain have you generally had?: moderate pain During the past 4 weeks, was someone available to help you if you needed & wanted help?: no, not at all During the past 4 weeks, what was the hardest physical activity you could do for at least 2 minutes?: moderate Can you get to places out of walking distance without help? (For eg., can you travel alone on buses, taxis or drive your car?): Yes Can you go shopping for groceries or clothes without someone's help?: Yes Can you prepare your own meals?: Yes Can you do your housework without help?: Yes Because of any health problems, do you need the help of another person with your personal care needs such as eating, bathing, dressing or getting around the house?: No Can you handle your own money without help?: Yes During the past 4 weeks, how would you rate your health in general?: good During the past 4 weeks how have things been going for you?: very well; could hardly better Are you having difficulties driving your car?: no Do you always fasten your seat belt when you are in a car?: yes, sometimes During past 4 weeks, have you been bothered by the following: never: Falling or dizzy when standing up, Sexual problems?, Trouble eating well?, Teeth or denture problems?, Problems using the telephone? and Tiredness or fatigue? Have you fallen 2 or more times in the past year?: No Are you afraid of falling?: Yes Are you a smoker?: no During the past 4 weeks, how many drinks of wine, beer, or other alcoholic beverages did you have?: 6-9 drinks per week Do you exercise for about 20 minutes 3 or more times a week?: yes, most of the time Have you been given information to help with the following?: no: Hazards in your house that might hurt you? and no: Keeping track of your medications? How often do you have trouble taking medicines the way you have been told to take them?: I always take medicine as prescribed How confident are you that you can control & manage most of your health problems?: very confident What is your race?: Black or PHQ-9 Over the last 2 weeks, how often have you been bothered by any of the following problems? 1. Little interest or pleasure in doing things: not at all 2. Feeling down, depressed, or hopeless: not at all 3. Trouble falling or staying asleep, or sleeping too much: not at all 4. Feeling tired or having little energy: not at all 5. Poor appetite or overeating: not at all 6. Feeling bad about yourself - or that you are a failure or have let yourself or your family down: not at all 7. Trouble concentrating on things, such as reading the newspaper or watching television: not at all 8. Moving or speaking so slowly that other people could have noticed. Or the opposite - being so fidgety or restless that you have been moving around a lot more than usual: not at all 9. Thoughts that you would be better off or of hurting yourself in some way: not at all Total score: 0 31996 - PHQ-9 Billing: Yes Source: Developed by Drs. Arcadio Rice, Sherie Viera, Jonas Hardwick and colleagues, with an educational nisa from [employer]. Review of Systems Const Denies poor appetite and Denies weakness Eyes Denies no additional complaints ENT Reports Normal hearing present, Denies dizziness, Denies nasal congestion, Denies tinnitus and Denies sore throat Card Denies chest pain, Denies syncope, Denies rapid heart rate and Denies dyspnea Resp Denies cough and Denies dyspnea GI Denies change in stool character, Reports constipation, Denies diarrhea, Denies nausea and Denies vomiting Denies dysuria and Denies urinary frequency Neuro Reports Normal hearing present, Denies confusion, Denies dizziness, Denies syncope and Denies weakness Psych Denies confusion Physical Exam Vital Signs: Last Vital Signs Pulse 76 01/05/25 10:36 BP 140/62 H 01/05/25 10:36 Pulse Ox 98 01/05/25 10:36 Oxygen Delivery Method Room Air 01/05/25 10:36 BMI result Body Mass Index 26.3 Const General: No confusion Orientation/consciousness: No confusion HEENT Other: impacted cerumen R ear, L tm intact Head: Yes normocephalic Ears: external ears normal Face and sinus: Yes normal facial exam Mouth: moist mucous membranes Throat: Yes tonsils normal Eyes Conjunctivae: conjunctivae normal Pupils: Equal, round and reactive pupils present and Pupil accommodation reflex normal Direct Ophthalmoscopy: normal light reflex Neck Neck: No lymphadenopathy Thyroid: Thyroid normal Chest Chest palpation & inspection: normal inspection of the chest Resp Effort & Inspection: normal respiratory effort and no audible wheezes Auscultation: clear to auscultation bilaterally, no crackles, no wheezes and lung sounds not diminished Cardio Rate: regular rate Rhythm: regular rhythm Peripheral pulses: radial pulses present and dorsalis pedis present GI Other: decline rectal Palpation (GI): no masses Auscultation: normal bowel sounds and normoactive bowel sounds Rectal Exam - Male: Yes deferred Other: declined Skin General skin exam: no rashes or lesions noted Rashes: no rashes Neuro General: No confusion Cranial nerves: Yes Equal, round and reactive pupils present and Yes Normal hearing present Cognition (Neuro): normal cognition Gait exam (Neuro): Normal gait present Motor exam (neuro): 5/5 motor strength present throughout Deep tendon reflexes (DTR's): Right brachioradialis reflex intensity grade: 2+, Left brachioradialis reflex intensity grade: 2+, Right patellar reflex intensity grade: 2+ and Left patellar reflex intensity grade: 2+ Extrem General: No edema Assessment & Plan Assessment & Plan (1) Medicare annual wellness visit, subsequent: Code(s): Z00.00 - Encounter for general adult medical examination without abnormal findings Plan: Patient is advised to eat healthy, keep well hydrated, keep active and have adequate sleep. (2) Hypertension: Code(s): I10 - Essential (primary) hypertension Qualifiers: Hypertension type: essential hypertension Qualified Code(s): I10 - Essential (primary) hypertension Plan: Continue with blood pressure medication. Decrease salt intake and exercise on metoprolol 25 mg once a day hydrochlorothiazide 12.5 mg once a day (3) Impaired glucose tolerance: Code(s): R73.02 - Impaired glucose tolerance (oral) Plan: Decrease the amount of carbohydrate intake, pasta, bread, rice and potatoes are all sugar and that is aside from all the sweet stuff, remember that fruits are good but they are Sweet also. Patient needs blood work (4) Colon cancer screening: Code(s): Z12.11 - Encounter for screening for malignant neoplasm of colon Plan: Patient is reminded about colonoscopy (5) Anemia of chronic disease: Code(s): D63.8 - Anemia in other chronic diseases classified elsewhere Plan: Continue to monitor (6) Tear of medial meniscus of right knee: Comment: MRI 2024 Code(s): S83.241A - Other tear of medial meniscus, current injury, right knee, initial encounter Plan: Patient follows up with the ortho (7) Obstructive sleep apnea: Comment: On CPAP Q night > 4 hours and benefit Code(s): G47.33 - Obstructive sleep apnea (adult) (pediatric) Plan: Continue to use the CPAP more than 4 hours a night and benefits from this. (8) Impacted cerumen of right ear: Code(s): H61.21 - Impacted cerumen, right ear (9) Knee osteoarthritis: Code(s): M17.9 - Osteoarthritis of knee, unspecified Plan History of Present Illness The patient is a 69-year-old male presenting with preventative care concerns, primarily focusing on colon cancer screening and blood pressure monitoring. The patient has not undergone colon cancer screening for over five years, with the last colonoscopy performed in 2013. He missed a scheduled screening due to travel and is now seeking a referral for a new wetlands conservation laborer as the previous one is unavailable. The patient has a history of hypertension, currently managed with hydrochlorothiazide and metoprolol. He previously experienced issues with lisinopril and amlodipine, which were discontinued. His blood pressure readings have been satisfactory, although there was a recent unexplained elevation. The patient reports knee pain attributed to arthritis, which has improved over time, allowing for better mobility. He recalls an incident where he could not bend his knee, which he believes led to a tear, but he is now able to move without significant pain. The patient consumes alcohol daily, limited to two nips, and has been advised to reduce intake due to hypertension concerns. He has been informed of the updated guidelines regarding alcohol consumption and its effects on blood pressure and liver health. Health Maintenance - Colon cancer screening referral to gastroenterology - Blood pressure monitoring and management - Alcohol consumption counseling to reduce intake - Vaccinations up to date: shingles, tetanus, pneumonia Social History - Alcohol use: Consumes two nips daily, advised to reduce due to hypertension - Exercise: Engages in daily walking and exercises - Diet: Consumes a diet rich in vegetables Review of Systems - Cardiovascular: Denies chest pain, syncope, or palpitations - Respiratory: Denies dyspnea or cough - Gastrointestinal: Denies constipation, reports regular bowel movements - Genitourinary: Denies dysuria, reports nocturia up to two times per night - Neurological: Denies dizziness, syncope, or headaches - Musculoskeletal: Reports knee pain, improved mobility - Ophthalmological: Reports floaters, denies cataracts Physical Exam General: Cooperative, healthy appearing, comfortable, no acute distress and well developed Orientation: Patient oriented x3 Limitations: No limitations Head: Normal to inspection Ears: Hearing grossly normal bilaterally, but a lot of earwax present Nose: Normal external nose present Face and sinus: Normal facial exam Eyes: Appearance normal, both eyes and all related structures, but presence of floaters noted Neck: Normal visual inspection and Yes full ROM Respiratory: Normal respiratory effort and able to speak in complete sentences. Clear to auscultation bilaterally Cardiovascular: Regular rate and rhythm. Normal S1 and S2 GI: Normal to inspection. Soft to palpation and nontender Skin: No rashes or lesions noted Neuro: Patient oriented x3 Extremities: Normal to inspection, but patient reports knee pain due to arthritis, now improved. Results Plan The patient will be referred to a wetlands conservation laborer for colon cancer screening, as it has been over five years since the last colonoscopy. A new referral will be made due to the unavailability of the previous wetlands conservation laborer. Blood pressure management will continue with current medications, hydrochlorothiazide and metoprolol, with regular monitoring to ensure control. The patient has been advised to reduce alcohol consumption to aid in blood pressure control and liver health. The patient is encouraged to maintain his current exercise regimen and dietary habits, which include daily walking and a vegetable-rich diet. Follow-up is scheduled in three months to reassess blood pressure and overall health status. Patient was informed and verbally consented to the use of an ambient scribe for clinic note documentation during this visit. Discussion Notes I discussed the importance of colon cancer screening with the patient, emphasizing the need for a referral to a new wetlands conservation laborer due to the unavailability of the previous one. We reviewed the patient's blood pressure management plan, including the continuation of current medications and the need for regular monitoring. I advised the patient on the updated guidelines regarding alcohol consumption, highlighting its impact on blood pressure and liver health, and recommended reducing intake. We also discussed the patient's exercise and dietary habits, encouraging him to maintain his current regimen. A follow-up appointment was scheduled in three months to reassess his health status. Patient Instructions - Schedule and attend the colonoscopy appointment with the new wetlands conservation laborer. - Continue taking hydrochlorothiazide and metoprolol as prescribed. - Monitor blood pressure regularly and report any significant changes. - Reduce alcohol consumption to improve blood pressure and liver health. - Maintain daily exercise and a vegetable-rich diet. - Return for a follow-up appointment in three months. Orders: Orders Comprehensive Met. Panel Today R73.02 - Impaired glucose tolerance (oral) Hemoglobin A1c Today R73.02 - Impaired glucose tolerance (oral) Free T4 (Free Thyroxine) Today R73.02 - Impaired glucose tolerance (oral) Complete Blood Count Auto Diff Today R73.02 - Impaired glucose tolerance (oral) Prostate Specific Antigen Scr Today R73.02 - Impaired glucose tolerance (oral) Ferritin Today R73.02 - Impaired glucose tolerance (oral) Reticulocyte Count Today R73.02 - Impaired glucose tolerance (oral) Lipid Panel Today E78.00 - Pure hypercholesterolemia, unspecified, R73.02 - Impaired glucose tolerance (oral) Thyroid Stimulating Hormone Today R73.02 - Impaired glucose tolerance (oral) Vitamin B12 and Folate Today R73.02 - Impaired glucose tolerance (oral) IRON PROFILE Today R73.02 - Impaired glucose tolerance (oral) Referrals Gastroenterology Referral Z12.11 - Encounter for screening for malignant neoplasm of colon Quality Reporting (2019) Depression/Bipolar (159/160/161/177) PHQ-9: Total score: 0 Coding Level of Care Code Medicare Subsequent (G0439) Diagnoses Medicare annual wellness visit, subsequent Z00.00 Essential hypertension I10 Hypertension type: essential hypertension Impaired glucose tolerance R73.02 Colon cancer screening Z12.11 Anemia of chronic disease D63.8 Tear of medial meniscus of right knee S83.241A Obstructive sleep apnea G47.33 Impacted cerumen of right ear H61.21 Knee osteoarthritis M17.9 Additional Codes PHQ-9 - 27505 - PHQ-9 Billing: Yes ([id number])
== END 2025-01-05 11:37 | disposition home or self-care (01) ==
LOC: HO.HMCH 10:33
PROVIDERS: PCP Internal Medicine; Visit Provider Internal Medicine
DX: Z00.00 Encounter for general adult medical examination without abnormal findings (principal); I10 Essential (primary) hypertension; R73.02 Impaired glucose tolerance (oral); Z12.11 Encounter for screening for malignant neoplasm of colon; D63.8 Anemia in other chronic diseases classified elsewhere; S83.241A Other tear of medial meniscus, current injury, right knee, initial encounter; G47.33 Obstructive sleep apnea (adult) (pediatric); H61.21 Impacted cerumen, right ear; M17.11 Unilateral primary osteoarthritis, right knee

== ENCOUNTER → 2025-01-05 10:32 | Outpatient (BNVA) | payer MEDICARE, SELFPAY | PROVIDERS: PCP Internal Medicine; Visit Provider Internal Medicine | DX: Z00.00 Encounter for general adult medical examination without abnormal findings (principal); I10 Essential (primary) hypertension; R73.02 Impaired glucose tolerance (oral); D63.8 Anemia in other chronic diseases classified elsewhere; S83.241D Other tear of medial meniscus, current injury, right knee, subsequent encounter; H61.21 Impacted cerumen, right ear; M17.9 Osteoarthritis of knee, unspecified | CPT/HCPCS: 96127 ==

== ENCOUNTER 2025-01-06 08:37 | Outpatient (REF) | payer MEDICARE, SELFPAY ==
[2025-01-06 09:07] LABS: MANUAL DIFF FLAG NO
[2025-01-06 09:31] LABS: Hematocrit 38.9 % (42.0-52.0); Hemoglobin 13.4 g/dl (14.0-18.0); Imm Gran Abs Auto 0.00 X10*3/uL (0.00-0.03); Imm Gran Pct Auto 0.0 % (0.0-0.4); Lymphocytes Absolute Auto 1.5 X10*3/uL (1.2-4.9); Mean Corpuscular HGB Conc 34.4 g/dl (31.0-36.0); Mean Corpuscular Hemoglobin 32.1 pg (27.0-33.0); Mean Corpuscular Volume 93.1 fL (80.0-98.0); NRBC Abs Auto 0.000 X10*3/uL (0.0-0.012); NRBC Pct Auto 0.0 /100WBC (0.0-0.2); Platelet Count 187 X10*3/uL (160-400); Red Blood Count 4.18 X10*6/uL (4.60-5.80); Reticulocytes Absolute 0.061 X10*6/uL (0.026-0.095); White Blood Count 3.3 X10*3/uL (4.8-10.8)
[2025-01-06 10:11] LABS: Hemoglobin A1C 147.7450 umol/L; Total Hemoglobin (HGBA1C) 3624.0186 umol/L
[2025-01-06 10:40] LABS: Alanine Aminotransferase 18 U/L (0-40); Albumin Level 4.4 g/dL (3.5-5.0); Alkaline Phosphatase 48 U/L (39-117); Anion Gap 11 (12-20); Aspartate Amino Transferase 29 U/L (5-37); Blood Urea Nitrogen 9 mg/dL (9-16); Calcium 9.0 mg/dL (8.4-10.2); Carbon Dioxide 29 mmol/L (22-29); Chloride 103 mmol/L (96-108); Cholesterol 158 mg/dL (<200); Estimated Glomerular Filt Rate > 60; HDL Cholesterol 68 mg/dL (>40); Iron 73 mcg/dL (45-160); Percent Iron Saturation 25 % (15-50); Potassium 4.1 mmol/L (3.3-5.1); Sodium 139 mmol/L (135-145); Total Iron Binding Capacity 296 mcg/dL (228-428); Total Protein 7.7 g/dL (6.5-8.0); Triglycerides 41 mg/dL (<150); Unsaturated Iron Binding 223 ug/dL
[2025-01-06 10:50] LABS: Ferritin 331 ng/mL (20-250); Free T4 (Free Thyroxine) 1.08 ng/dL (0.71-1.85); Thyroid Stimulating Hormone 0.94 uIU/mL (0.32-4.0)
[2025-01-06 11:11] LABS: Folate 10.8 ng/mL (> or = 4.0); Vitamin B12 1118 pg/mL (200-900)
== END 2025-01-06 08:38 | disposition home or self-care (01) ==
LOC: HO.LAB 08:37
PROVIDERS: PCP Internal Medicine; Visit Provider Internal Medicine
DX: Z12.5 Encounter for screening for malignant neoplasm of prostate (principal); E78.00 Pure hypercholesterolemia, unspecified; R73.02 Impaired glucose tolerance (oral)
CPT/HCPCS: 36415; 80053; 80061; 82607; 82728; 82746; 83036; 83540; 84153; 84439; 84443; 85025; 85045

== ENCOUNTER 2025-01-25 08:53 | Outpatient (AMB) | payer MEDICARE, SELFPAY ==
--- NOTE | 2025-01-25 08:55 | A.OFFVIS_ITS ---
Vital Signs 01/25/25 09:00 Height 5 ft 11 in Weight 180 lb BMI 25.1 Intake Visit Reasons: OV- Right knee MRI review Intake Note: Jaspal is a 69 year old male who presents with complaints of progressively worsening right knee pain and giving way. The patient describes his pain as sharp in nature. Most of the pain is along the medial aspect of his knee. He states that at times his pain will radiate into his right thigh and lower leg. He denies any back pain. He states that his right knee will give out several times per day. He has failed the last 6 weeks of conservative treatment which has included physical therapy exercises, Tylenol and anti-inflammatory medicines. Allergies amlodipine Allergy (Unknown, Verified 01/05/25 11:05) Unknown lisinopril Allergy (Unknown, Verified 01/05/25 11:05) Unknown Medication List - Last Reconciled 01/25/25 by Lisandro Dhillon MD hydrochlorothiazide 12.5 mg PO Q OTHER DAY 90 days metoprolol succinate ER 25 mg PO DAILY 30 days [facility] Medical History (Updated 01/25/25 @ 09:00 by Lisandro Dhillon MD) Tear of medial meniscus of right knee Normochromic normocytic anemia Obstructive sleep apnea Hypertension Vitamin D deficiency Erectile dysfunction Surgical History History of surgery Family History Father No problems noted. Mother No problems noted. Social History (Updated 01/05/25 @ 11:27 by Joel Dale MD) Household Members: None Housing: House Are you a primary daycare director to a significant other at home: No Do you presently have visiting nurse or other home services: No Alcohol intake: current Alcohol intake frequency: 0-2 drinks per day Comment: QD2 nips and little beer Patient Tobacco Use Status: Former Tobacco user Tobacco use type: Cigarette Years Smoked: 1998 e-Cigarette/Vaping Use: Never Used Second Hand Smoke Exposure: Yes service: No Current occupational status: retired Cognitive needs: No Hearing needs: No Vision needs: Yes Physical Exam Extrem Other: Right knee examination shows a minimal effusion, mild crepitus with range of motion, tenderness along his medial joint line, positive Marlen's test, no instability Results Reviewed Results Reviewed: MRI of the patient's right knee shows a tear of the medial meniscus as well as moderate diffuse degenerative changes, no acute bony abnormalities Assessment & Plan Assessment & Plan (1) Tear of medial meniscus of right knee: Comment: MRI 2024 Code(s): S83.241A - Other tear of medial meniscus, current injury, right knee, initial encounter Category: Medical Plan Jaspal presents with right knee pain and mechanical symptoms due to degenerative joint disease as well as a medial meniscus tear. I had a lengthy discussion with the patient regarding the treatment options. At this point the patient's symptoms are tolerable to him. He will continue with his activity modifications. He will follow up with me on an as-needed basis should his symptoms worsen in any way. Feel free to call me at any time should questions regarding his orthopedic management arise. I spent 20 minutes in reviewing the patient's records and imaging studies, seeing the patient and documenting in the medical record. Coding Level of Care Code Est Pt Level 3 (07896) Complex EM visit Add On G2211 Diagnoses Tear of medial meniscus of right knee S83.241A
[2025-01-25 09:00] VITALS: BMI 25.1
== END 2025-01-25 09:11 | disposition home or self-care (01) ==
LOC: HO.HOS 08:53
PROVIDERS: PCP Internal Medicine; Visit Provider Orthopaedic Surgery
DX: S83.241A Other tear of medial meniscus, current injury, right knee, initial encounter (principal)
CPT/HCPCS: 99213; G2211

== ENCOUNTER → 2025-01-25 08:53 | Outpatient (BNVA) | payer MEDICARE, SELFPAY | PROVIDERS: PCP Internal Medicine; Visit Provider Orthopaedic Surgery | DX: S83.241D Other tear of medial meniscus, current injury, right knee, subsequent encounter (principal) | CPT/HCPCS: 99212 ==

== ENCOUNTER 2025-02-24 08:42 | Outpatient (AMB) | payer MEDICARE, SELFPAY ==
[2025-02-24 08:45] VITALS: BP 148/90; PULSE 72; TEMP 36.3; O2SAT 97; BMI 26.9
--- NOTE | 2025-02-24 08:45 | MHC.PC.OV ---
Vital Signs 02/24/25 08:45 Height 5 ft 11 in Weight 193 lb 4 oz BMI 26.9 BP 148/90 H Blood Pressure Location Lt brachial Position Sitting Pulse 72 Pulse Source Pulse Oximeter Temp 97.3 F Temp Source Temporal Artery Scan Pulse Oximetry (%) 97 Oxygen Delivery Method Room Air Intake Visit Reasons: discuss pain medication Allergies amlodipine Allergy (Unknown, Verified 02/24/25 08:48) Unknown lisinopril Allergy (Unknown, Verified 02/24/25 08:48) Unknown Medication List - Last Reconciled 02/24/25 by Joel Dale MD diclofenac sodium 1% (Arthritis Pain (diclofenac)) 4 grams topical QID hydrochlorothiazide 12.5 mg PO Q OTHER DAY 90 days metoprolol succinate ER 25 mg PO DAILY 30 days Tobacco use date assessed: 02/24/25 Fall risk assessment: No Falls in past year Last assessed Fall Risk: 02/24/25 Dental Screening Dental Screen Date: 02/24/25 Did you have a dental visit in the last 12 months?: Yes Did you have a dental problem in the last 6 months where you did not have access to dental care?: No Was dental information given to patient?: Patient has dentist HPI discuss pain medication HPI Details R knee pain PFSH Medical History Tear of medial meniscus of right knee Normochromic normocytic anemia Obstructive sleep apnea Hypertension Vitamin D deficiency Erectile dysfunction Surgical History History of surgery Family History Father No problems noted. Mother No problems noted. Social History Household Members: None Housing: House Are you a primary primary care sales representative to a significant other at home: No Do you presently have visiting nurse or other home services: No Alcohol intake: current Alcohol intake frequency: 0-2 drinks per day Comment: QD2 nips and little beer Patient Tobacco Use Status: Former Tobacco user Tobacco use type: Cigarette Years Smoked: 1998 e-Cigarette/Vaping Use: Never Used Second Hand Smoke Exposure: Yes service: No Current occupational status: retired Cognitive needs: No Hearing needs: No Vision needs: Yes Questionnaire PHQ-9 Over the last 2 weeks, how often have you been bothered by any of the following problems? 1. Little interest or pleasure in doing things: not at all 2. Feeling down, depressed, or hopeless: not at all 3. Trouble falling or staying asleep, or sleeping too much: not at all 4. Feeling tired or having little energy: not at all 5. Poor appetite or overeating: not at all 6. Feeling bad about yourself - or that you are a failure or have let yourself or your family down: not at all 7. Trouble concentrating on things, such as reading the newspaper or watching television: not at all 8. Moving or speaking so slowly that other people could have noticed. Or the opposite - being so fidgety or restless that you have been moving around a lot more than usual: not at all 9. Thoughts that you would be better off or of hurting yourself in some way: not at all Total score: 0 Source: Developed by Drs. Arcadio Rice, Sherie Viera, Jonas Hardwick and colleagues, with an educational nisa from [employer]. Thrive Questionnaire Date Thrive assessed: 09/30/24 I am a: Patient What is your living situation today?: I have a steady place to live Within the past 12 months, did the food you bought not last and you didn't have the money to get more?: Never true Within the past 12 months, did you worry whether your food would run out before you got money to buy more?: Never true Do you have trouble paying for medicines?: No Do you have trouble getting transportation to medical appointments?: No Do you have trouble paying your heating and electricity bill?: No Do you have trouble taking care of your child, family member or friend?: No Do you have trouble with day-to-day activities such as bathing, preparing meals, shopping, managing finances, etc.?: No Are you currently unemployed and looking for a job?: No Are you interested in more education?: No Please select the resources that you would like help with: None Currently or been in a relationship where the following occur: No concerns reported THRIVE Score: 0 AUDIT C Alcohol Use Questionnaire (AUDIT-C) 1. How often do you have a drink containing alcohol?: Monthly or less 2. How many drinks containing alcohol do you have on a typical day when you are drinking?: 3 or 4 3. How often do you have six or more drinks on one occasion?: Never Total Score: 2 JESSY-7 AMB Questionnaire JESSY-7 Date JESSY - 7 assessed: 09/30/24 Feeling nervous, anxious, or on edge: 0 = Not at all Not being able to stop or control worryin = Not at all Worrying too much about different things: 0 = Not at all Trouble relaxin = Not at all Being so restless that it is hard to sit still: 0 = Not at all Becoming easily annoyed or irritable: 0 = Not at all Feeling afraid as if something awful might happen: 0 = Not at all Total JESSY-7 score (0-4 normal; 5-9 mild; 10-14 moderate; 15-21 severe): 0 Source: Developed by Drs. Arcadio Rice, Sherie Viera, Jonas Hardwick and colleagues, with an educational nisa from [employer]. Physical exam (Primary Care) Vital Signs: Last Vital Signs Temp 97.3 F 02/24/25 08:45 Pulse 72 02/24/25 08:45 BP 148/90 H 02/24/25 08:45 Pulse Ox 97 02/24/25 08:45 Oxygen Delivery Method Room Air 02/24/25 08:45 BMI result Body Mass Index 26.9 Tobacco/Smoking Status: Tobacco use Status Tobacco use date assessed 02/24/25 02/24/25 08:49 Patient Tobacco Use Status Former Tobacco user 02/24/25 08:49 Tobacco use type Cigarette 02/24/25 08:49 e-Cigarette/Vaping Use Never Used 02/24/25 08:49 PHQ-9: PHQ-9 Score PHQ-9: Total score 0 02/24/25 08:49 Thrive Assessment: Date of Thrive Assessment Date Thrive assessed 09/30/24 02/24/25 08:49 Currently or been in a relationship where the following occur: No concerns reported Const General: alert; No acute distress Eyes Conjunctivae: conjunctivae normal Resp Auscultation: clear to auscultation bilaterally Cardio Rate: regular rate Rhythm: regular rhythm GI Inspection: Yes normal to inspection Extrem General: Yes normal to inspection and No edema Coding Level of Care Code Est Pt Level 4 (47985) Complex EM visit Add On G2211 Diagnoses Right knee meniscal tear S83.206A Essential hypertension I10 Hypertension type: essential hypertension Impaired glucose tolerance R73.02 Colon cancer screening Z12.11 Anemia of chronic disease D63.8 Obstructive sleep apnea G47.33 Overweight (BMI 25.0-29.9) E66.3 Assessment & Plan Assessment & Plan (1) Right knee meniscal tear: Comment: December 2024 MRI medial and lateral Code(s): S83.A - Unspecified tear of unspecified meniscus, current injury, right knee, initial encounter Category: Medical Plan: Patient has met with Orthopedics and present conservative therapy (2) Hypertension: Code(s): I10 - Essential (primary) hypertension Category: Medical Qualifiers: Hypertension type: essential hypertension Qualified Code(s): I10 - Essential (primary) hypertension Plan: Continue with blood pressure medication. Decrease salt intake and exercise presently on hydrochlorothiazide 12.5 mg every other day with metoprolol 25 mg once a day (3) Impaired glucose tolerance: Code(s): R73.02 - Impaired glucose tolerance (oral) Category: Medical Plan: Decrease the amount of carbohydrate intake, pasta, bread, rice and potatoes are all sugar and that is aside from all the sweet stuff, remember that fruits are good but they are Sweet also. (4) Colon cancer screening: Code(s): Z12.11 - Encounter for screening for malignant neoplasm of colon Category: Medical Plan: Patient has a schedule with Gastroenterology in 2025 (5) Anemia of chronic disease: Code(s): D63.8 - Anemia in other chronic diseases classified elsewhere Category: Medical Plan: Continuing to monitor, stable (6) Obstructive sleep apnea: Comment: On CPAP Q night > 4 hours and benefit Code(s): G47.33 - Obstructive sleep apnea (adult) (pediatric) Category: Medical Plan: Continue to use the CPAP more than 4 hours a night and benefits from this. (7) Overweight (BMI 25.0-29.9): Code(s): E66.3 - Overweight Category: Medical Plan History of Present Illness The patient is a 69-year-old male presenting for a follow-up visit to manage multiple chronic conditions and to discuss knee pain related to osteoarthritis and a meniscal tear. The patient has a history of hypertension, currently managed with hydrochlorothiazide 12.5 mg every other day and metoprolol 25 mg once a day. He also has obstructive sleep apnea, for which he uses a CPAP machine more than 4 hours a night, reporting benefits from its use. The patient has impaired glucose tolerance with a hemoglobin A1c of 5.9, indicating a need for monitoring but not yet reaching diabetic levels. He is advised to be cautious with carbohydrate intake, particularly pasta, bread, rice, and potatoes. Renal insufficiency is noted with a creatinine level of 1.15, but renal function is currently stable. The patient is advised to use NSAIDs sparingly due to potential renal impact. The patient has chronic anemia, stable since 2020, with normal platelet count and adequate iron levels. He is advised to consume iron-rich vegetables like spinach while avoiding liver and meat to prevent cholesterol issues. The patient has knee osteoarthritis and a tear of the medial meniscus of the right knee, confirmed by MRI showing medial and lateral meniscal tearing, mild quadriceps and patellar tendinopathy, and tricompartmental osteoarthritis. He has been seeing orthopedics and is managing pain with conservative therapy, including the use of Voltaren gel and occasional NSAIDs. Health Maintenance - Colonoscopy scheduled for September 2025 - Received flu shot last month Social History Review of Systems - Musculoskeletal: Reports knee pain, denies recent trauma or falls. Physical Exam Results - Labs: Hemoglobin A1c 5.9, creatinine 1.15, normal platelet count, normal electrolytes, elevated B12, normal PSA, normal folic acid, normal thyroid function. - Imaging: MRI showing medial and lateral meniscal tearing, mild quadriceps and patellar tendinopathy, tricompartmental osteoarthritis, and knee joint effusion. Plan Patient was informed and verbally consented to the use of an ambient scribe for clinic note documentation during this visit. 1. Hypertension The patient is currently on hydrochlorothiazide 12.5 mg every other day and metoprolol 25 mg once a day for hypertension management. Blood pressure control will continue to be monitored, and adjustments to medication will be made as necessary. 2. Obstructive Sleep Apnea The patient uses a CPAP machine for more than 4 hours a night, which has been beneficial in managing obstructive sleep apnea. Continued adherence to CPAP therapy is recommended. 3. Impaired Glucose Tolerance The patient's hemoglobin A1c is 5.9, indicating impaired glucose tolerance. Dietary modifications to reduce carbohydrate intake are advised to prevent progression to diabetes. 4. Renal Insufficiency Renal function is stable with a creatinine level of 1.15. NSAIDs should be used sparingly to avoid renal complications. 5. Anemia Of Chronic Disease The patient has stable chronic anemia since 2020, with normal platelet count and adequate iron levels. Dietary recommendations include consuming iron-rich vegetables while avoiding liver and meat. 6. Knee Osteoarthritis And Meniscal Tear The patient has knee osteoarthritis and a tear of the medial meniscus of the right knee, confirmed by MRI. Pain management includes conservative therapy with Voltaren gel and occasional NSAIDs. Discussion Notes During the visit, we discussed the management of hypertension with current medications, emphasizing the importance of monitoring blood pressure regularly. For obstructive sleep apnea, continued use of the CPAP machine was advised, as it has been beneficial. We reviewed dietary modifications to manage impaired glucose tolerance, focusing on reducing carbohydrate intake. The patient was advised to use NSAIDs sparingly due to renal insufficiency, and to maintain a diet rich in iron from vegetables to manage chronic anemia. For knee osteoarthritis and meniscal tear, conservative pain management strategies were discussed, including the use of Voltaren gel. Patient Instructions - Continue taking hydrochlorothiazide and metoprolol as prescribed for blood pressure management. - Use CPAP machine for more than 4 hours each night for sleep apnea. - Monitor carbohydrate intake to manage blood sugar levels. - Use NSAIDs sparingly to protect kidney function. - Eat iron-rich vegetables like spinach, avoid liver and meat to manage anemia. - Apply Voltaren gel as needed for knee pain management. Medications: New diclofenac sodium 1% (Arthritis Pain (diclofenac)) apply to single knee, ankle, foot; for foot includes sole/toes/top of foot 4 grams topical QID 400 grams 2RF S83.206A - Unspecified tear of unspecified meniscus, current injury, right knee, initial encounter
== END 2025-02-24 09:08 | disposition home or self-care (01) ==
LOC: HO.HMCH 08:43
PROVIDERS: PCP Internal Medicine; Visit Provider Internal Medicine
DX: S83.206A Unspecified tear of unspecified meniscus, current injury, right knee, initial encounter (principal); I10 Essential (primary) hypertension; R73.02 Impaired glucose tolerance (oral); Z12.11 Encounter for screening for malignant neoplasm of colon; D63.8 Anemia in other chronic diseases classified elsewhere; G47.33 Obstructive sleep apnea (adult) (pediatric); E66.3 Overweight

== ENCOUNTER → 2025-02-24 08:42 | Outpatient (BNVA) | payer MEDICARE, SELFPAY | PROVIDERS: PCP Internal Medicine; Visit Provider Internal Medicine | DX: I10 Essential (primary) hypertension (principal); R73.02 Impaired glucose tolerance (oral); D63.8 Anemia in other chronic diseases classified elsewhere; G47.33 Obstructive sleep apnea (adult) (pediatric); E66.3 Overweight; S83.206A Unspecified tear of unspecified meniscus, current injury, right knee, initial encounter; M17.11 Unilateral primary osteoarthritis, right knee; X58.XXXA Exposure to other specified factors, initial encounter; Y93.9 Activity, unspecified; Y92.9 Unspecified place or not applicable; Y99.9 Unspecified external cause status; Z99.89 Dependence on other enabling machines and devices; D64.9 Anemia, unspecified | CPT/HCPCS: 96127; 99212 ==